=== PATIENT | female | born 1970 | race Caucasian/White ===

== ENCOUNTER 2018-03-21 08:19 | Emergency (ER) | payer OTHER ==
[~2018-03-21] VITALS: Ht 160 cm; Wt 64.4 kg
== END 2018-03-21 12:16 | disposition home or self-care (01) ==
LOC: ER 08:19
DX: R10.11 Right upper quadrant pain (principal)

== ENCOUNTER 2018-08-15 05:55 | Day surgery (SDC) | payer OTHER | END 2018-08-15 15:15 | disposition home or self-care (01) | LOC: CIR.AMB 05:55 | DX: K50.10 Crohn's disease of large intestine without complications (principal) ==

== ENCOUNTER → 2018-11-25 | Emergency (ER) | payer OTHER ==
[~2018-11-25] VITALS: Ht 160 cm; Wt 63.5 kg
[~2018-11-25] MED LIST: CHLORDIAZEPOXI1 EACH PO; INTESTINEX680 M1 PO; PANTOPRAZOLE SO20 MG PO; PEPCID AC20 MG PO
== END | disposition home or self-care (01) ==
LOC: ER 18:17
DX: K58.9 Irritable bowel syndrome, unspecified (principal); R10.84 Generalized abdominal pain

== ENCOUNTER 2019-01-30 05:40 | Emergency (ER) | payer OTHER ==
[~2019-01-30] VITALS: Ht 160 cm; Wt 61.2 kg
== END 2019-01-30 11:31 | disposition home or self-care (01) ==
LOC: ER 05:40
DX: K21.9 Gastro-esophageal reflux disease without esophagitis (principal); N39.0 Urinary tract infection, site not specified

== ENCOUNTER 2019-02-22 05:45 | Emergency (ER) | payer OTHER ==
[~2019-02-22] VITALS: Ht 160 cm; Wt 61.2 kg
== END 2019-02-22 11:30 | disposition home or self-care (01) ==
LOC: ER 05:45
DX: R53.1 Weakness (principal)

== ENCOUNTER 2023-03-29 18:00 | Emergency (ER) | payer OTHER ==
[~2023-03-29] VITALS: Ht 160 cm; Wt 65.8 kg
== END 2023-03-30 01:26 | disposition home or self-care (01) ==
LOC: ER 18:00
DX: T28.0XXA Burn of mouth and pharynx, initial encounter (principal); X08.8XXA Exposure to other specified smoke, fire and flames, initial encounter; Y93.9 Activity, unspecified; Y92.9 Unspecified place or not applicable; Y99.9 Unspecified external cause status; M26.629 Arthralgia of temporomandibular joint, unspecified side; F41.8 Other specified anxiety disorders; Z88.8 Allergy status to other drugs, medicaments and biological substances